=== PATIENT | male | born 1945 | race Caucasian/White ===

== ENCOUNTER 2016-11-08 10:53 | Inpatient (IN) | payer MEDICARE, MEDICAID, OTHER ==
[~2016-11-08] VITALS: Ht 182.9 cm; Wt 106.9 kg
--- NOTE | ~2016-11-08 | OR ---
PATIENT'S NAME: LORAINE ERVIN [facility] AGE: 71 Y [address] ROOM: [address] [address] LOCATION: GICU ADMIT DATE: 11/08/2016 OR/Procedure Report DISCHARGE DATE: FAMILY PHYSICIAN: Boo Taylor MD ATTENDING PHYSICIAN: Branden Sexton SURGEON: Branden Sexton MD PLANT ELECTRICAL ENGINEER: DATE OF PROCEDURE: 11/08/2016 PREOPERATIVE DIAGNOSES: Left frontal intracerebral hemorrhage. POSTOPERATIVE DIAGNOSIS: Left frontal intracerebral hemorrhage. OPERATION PROPOSED AND PERFORMED: Right frontal craniotomy and evacuation of intracerebral hematoma. DESCRIPTION OF PROCEDURE: Under general anesthesia, the patient was positioned supine. The right frontal region was shaved, prepped, and draped in the usual fashion. The patient was placed in a Ramirez head clamp. The right frontal region was then prepped and draped in the usual manner. An almost semilunar incision was carried out extending from the anterior portion of the frontal bone to the posterior portion of the frontal bone curving inferiorly and anteriorly over the right earlobe. The temporalis muscle and fascia were then incised using the Bovie as well as the pericranium. The pericranium as well as the temporalis muscle and fascia were reflected as a unit with the scalp. Bur holes were carried out in the frontal region and a free frontal bone flap was fashioned out. We used the ultrasound to give us an idea of where the hematoma was closest to the surface and carried out a cerebrotomy and we got most promptly into the intracerebral hematoma. After we got in, we then went ahead and using the suction evacuated the hematoma. There were some abnormal vessels on the surface and there was an area where there was probably recent blood clot with destruction of the brain at this site. However, we were able to go around that and take that out and send it to the pathologist to make sure that there is not any arteriovenous malformation at this site that could explain the hemorrhage that he had. Having completely evacuated the hematoma grossly, the wound was then thoroughly irrigated with bacitracin irrigation continuously during the procedure and pieces of Surgicel were then used to line the cavity left behind after evacuating the hematoma. Hemostasis was achieved during the procedure with bipolar cautery. Next, the dura was closed in the usual manner. The PATIENT'S NAME: LORAINE ERVIN [facility] AGE: 71 Y [address] ROOM: [place] [address] LOCATION: [facility] ADMIT DATE: 11/08/2016 OR/Procedure Report DISCHARGE DATE: FAMILY PHYSICIAN: Boo Taylor MD ATTENDING PHYSICIAN: Branden Sexton temporalis muscle and fascia were sutured together and the scalp was then closed in the usual two layer fashion. After that, at the time we opened the dura, the brain was quite tight; however, after evacuating the hematoma, the brain was very well decompressed. The patient did tolerate the procedure well and was taken to the intensive care unit. MD HAYES FLORES/jeanie /[id number] d: 11/09/16 0133 t: 12/07/16 1228, OPERATIVE SUMMARY
--- NOTE | ~2016-11-08 | ENPV ---
Vascular Lower Extremities DVT Study Procedure Demographics Patient Name LORAINE ERVIN Date of Study 11/12/2016 Patient Number [id number] Gender Male Date of 1945 Age 71 Visit Number [id number] Height Accession Number [id number] Weight Room Number G6215 BSA BMI Referring Carlie Garcia MD Physician Conrad Flowers Physician Fatimah Silva MD Physician Ordering Physician Conrad Flowers Marketing Outreach Coordinator Linux Administrator Blas Patel [facility] Conclusions Summary No evidence of deep vein thrombosis or superficial thrombophlebitis in the lower extremities bilaterally . Procedure Type of Study: Veins:Lower Extremities DVT Study, Venous Duplex Lower Extremity Bilateral. Additional Indications:extended bedrest intracranial bleed Appropriate Use Criteria:9 Patient Status:Routine. Study Location:Inpatient Portable. Technical Quality:Adequate visualization. Velocities are measured in cm/s ; Diameters are measured in cm Right Lower Extremities DVT Study Measurements Right 2D and Doppler Measurements + + + + +------+------+ + !Location !Visualized!Compressibility!Thrombosis!Signal!Reflux!Reflux ! ! ! ! ! ! ! !(sec) ! + + + + +------+------+ + !GSV Thigh !Yes !Yes !None !Phasic!No ! ! + + + + +------+------+ + !Common !Yes !Yes !None !Phasic!No ! ! !Femoral ! ! ! ! ! ! ! + + + + +------+------+ + !Prox !Yes !Yes !None !Phasic!No ! ! !Femoral ! ! ! ! ! ! ! + + + + +------+------+ + !Mid Femoral!Yes !Yes !None !Phasic!No ! ! + + + + +------+------+ + !Dist !Yes !Yes !None !Phasic!No ! ! !Femoral ! ! ! ! ! ! ! + + + + +------+------+ + !Popliteal !Yes !Yes !None !Phasic!No ! ! + + + + +------+------+ + !Gastroc !Yes !Yes !None !Phasic!No ! ! + + + + +------+------+ + !PTV !Yes !Yes !None !Phasic!No ! ! + + + + +------+------+ + !Peroneal !Yes !Yes !None !Phasic!No ! ! + + + + +------+------+ + Left Lower Extremities DVT Study Measurements Left 2D and Doppler Measurements + + + + +------+------+ + !Location !Visualized!Compressibility!Thrombosis!Signal!Reflux!Reflux ! ! ! ! ! ! ! !(sec) ! + + + + +------+------+ + !GSV Thigh !Yes !Yes !None !Phasic!No ! ! + + + + +------+------+ + !Common !Yes !Yes !None !Phasic!No ! ! !Femoral ! ! ! ! ! ! ! + + + + +------+------+ + !Prox !Yes !Yes !None !Phasic!No ! ! !Femoral ! ! ! ! ! ! ! + + + + +------+------+ + !Mid Femoral!Yes !Yes !None !Phasic!No ! ! + + + + +------+------+ + !Dist !Yes !Yes !None !Phasic!No ! ! !Femoral ! ! ! ! ! ! ! + + + + +------+------+ + !Popliteal !Yes !Yes !None !Phasic!No ! ! + + + + +------+------+ + !Gastroc !Yes !Yes !None !Phasic!No ! ! + + + + +------+------+ + !PTV !Yes !Yes !None !Phasic!No ! ! + + + + +------+------+ + !Peroneal !Yes !Yes !None !Phasic!No ! ! + + + + +------+------+ + Signature dtt: JANIE JUAREZ dtd: 11/12/16 0750 Physician Lokesh Cardoza
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
--- NOTE | ~2016-11-08 | ER ---
PATIENT'S NAME: ARCADIOLORAINE [facility] AGE: 71 Y [address] ROOM: [place] [address] LOCATION: [facility] ADMIT DATE: 11/08/2016 ER/Outpatient Report DISCHARGE DATE: FAMILY PHYSICIAN: Boo Taylor MD ATTENDING PHYSICIAN: Branden Sexton TIME OF ARRIVAL: 1053 hours. TIME OF EVALUATION: 1053 hours. CHIEF COMPLAINT: Head bleed. HISTORY OF PRESENT ILLNESS: The patient is a 71-year-old male who presents to the emergency department today with a chief complaint of head bleed. The patient was transferred from [place]. Apparently, the patient is a alf patient. He has been combative, ended up getting some Haldol when he was checked on, noted to be nonverbal with right-sided facial droop and unable to move his right arm and leg. He was sent to [facility], found to have an intracranial hemorrhage, and transferred here for higher level of care. The patient was seen in the emergency department here as there was a concern that the patient was having respiratory distress and worsening mental status that would require intubation. PAST MEDICAL HISTORY: Coronary artery disease, dementia, dyslipidemia, macular degeneration, depression, and anxiety. PAST SURGICAL HISTORY: None reported. SOCIAL HISTORY: The patient denies any tobacco, alcohol, or illicit drug use. ALLERGIES: NO KNOWN DRUG ALLERGIES. MEDICATIONS: Please see list. REVIEW OF SYSTEMS: Unable to be obtained secondary to the patient's critical condition. PATIENT'S NAME: [facility] AGE: 71 Y [address] ROOM: [place] [address] LOCATION: [facility] ADMIT DATE: 11/08/2016 ER/Outpatient Report DISCHARGE DATE: FAMILY PHYSICIAN: Boo Taylor MD ATTENDING PHYSICIAN: Branden Sexton PHYSICAL EXAMINATION: VITAL SIGNS: Weight 108.9 kg. Blood pressure 177/79, pulse 95, respiratory rate 16, temperature 99.4, and oxygen saturation 97% on 4 L nasal cannula. GENERAL: The patient is a 71-year-old male who appears stated age. HEENT: Normocephalic, atraumatic. Pupils are 3 mm and reactive with left lateral deviation. Does have left tongue deviation. The patient's oropharynx is rather clear. NECK: Supple. No step-offs or deformities. CARDIOVASCULAR: Regular rate and rhythm. No murmurs, rubs, or gallops. LUNGS: Clear to auscultation bilaterally. No wheezes, rales, or rhonchi. ABDOMEN: Soft, nontender, and nondistended. No rebound, rigidity, or guarding. Positive bowel sounds. MUSCULOSKELETAL: The patient is flaccid in his right upper extremity. He does have some slight movement in his right foot. He is able to lift his left leg. 3/5 muscle strength on command. He does follow command and is able to squeeze fingers on the left. He does attempt to look and follow light. NEUROLOGICAL: GCS E4, V2, M6. He does have upward going toes on the right. No clonus. 2/4 reflexes. SKIN: Warm and dry. LABORATORY AND X-RAY DATA: CT scan of the brain is obtained. It does reveal a large intracerebral hemorrhage. CMP: Sodium 127, chloride 92, and glucose 215. LFTs are normal. CBC unremarkable except for white blood cell count 16.2. Coags are normal. IMPRESSION: 1. Intracerebral hemorrhage. 2. Initial visit. EMERGENCY DEPARTMENT COURSE: The patient was brought back to the examination room. Seen and evaluated immediately upon arrival by myself. I have discussed the case with Dr. Sexton with Neurosurgery. He has seen and evaluated the patient down here in the emergency department. The patient will proceed directly to the operating room. DISPOSITION: The patient is transferred to the operating room under the care of Dr. Sexton in critical condition. CARLOTA JIMENES DO PATIENT'S NAME: LORAINE ERVIN [facility] AGE: 71 Y [address] ROOM: [address] [address] LOCATION: [facility] ADMIT DATE: 11/08/2016 ER/Outpatient Report DISCHARGE DATE: FAMILY PHYSICIAN: Boo Taylor MD ATTENDING PHYSICIAN: Branden Sexton/jeanie /[id number] d: 11/08/16 1437 t: 11/12/16 2103, OUTPATIENT REPORT
[2016-11-08 11:15] LABS: BASOPHIL # 0.1 K/uL (0.0-0.2); BASOPHIL % 0.4 %; EOSINOPHIL % 0.1 %; HEMATOCRIT 38.8 % (37.0-53.0); HEMOGLOBIN 14.2 g/dL (11.0-16.0); IMMATURE GRANULOCYTE # 0.1 K/uL (0.0-0.3); IMMATURE GRANULOCYTE % 0.6 %; LYMPHOCYTE % 5.9 %; MCH 29.5 pg (27.0-34.0); MCHC 36.6 gm/dL (32.0-36.5); MCV 80.5 fl (83.0-98.0); MONOCYTE # 0.9 K/uL (0.0-1.0); MONOCYTE % 5.6 %; NEUTROPHIL # (ANC) 14.1 K/uL (1.4-9.0); NEUTROPHIL % 87.4 %; NRBC % 0 /100WBC (0-0.00); PLATELET COUNT 172 K/uL (150-450); RBC 4.82 M/uL (3.50-5.50); RDW-CV 12.2 % (11.9-14.6)
[2016-11-08 11:17] LABS: WBC 16.2 K/uL (4.0-11.0)
[2016-11-08 11:25] LABS: INR - (THERAPEUTIC) 1.02 (0.92-1.07); PROTIME 10.7 SECONDS (9.8-11.4); PTT 29 SECONDS (25-32)
[2016-11-08 11:32] LABS: ALBUMIN 3.7 gm/dL (3.5-5.0); ANION GAP 14.4 (10.0-19.0); CALCIUM 8.2 mg/dL (8.5-10.5); POTASSIUM 4.4 mMol/L (3.7-5.1); TOTAL BILIRUBIN 0.8 mg/dL (0.0-1.5); TOTAL PROTEIN 7.2 g/dL (6.0-8.4)
[2016-11-08] MEDS ORDERED: ASPIRIN LO-DOSE81 MG PO (18:01)
[2016-11-08] MEDS ORDERED: ZESTRIL40 MG PO (18:02)
[2016-11-08] MEDS ORDERED: THERAGRAN-M1 TAB PO (18:14)
[2016-11-08] MEDS ORDERED: ZOLOFT100 MG PO (18:15)
[2016-11-08] MEDS ORDERED: MAG-OX-400(241400 MG PO (18:17)
[2016-11-08] MEDS ORDERED: ZYPREXA2.5 MG PO ×2 (18:17→18:25)
[2016-11-08] MEDS ORDERED: PEPCID20 MG PO (18:18)
[2016-11-08] MEDS ORDERED: HALDOL1 MG PO (18:19)
[2016-11-08] MEDS ORDERED: TYLENOL WITH C1 EACH PO (18:19)
[2016-11-08] MEDS ORDERED: NATURAL BALANCE15 ML OPHTH (18:21)
[2016-11-08] MEDS ORDERED: MAG-AL PLUS XS30 ML PO (18:23)
[2016-11-08] MEDS ORDERED: ROBITUSSIN DM120 ML PO (18:24)
[2016-11-08] MEDS ORDERED: SURFAK240 MG PO (18:26)
[2016-11-08] MEDS ORDERED: TYLENOL325 MG PO (18:26)
[2016-11-08] MEDS ORDERED: COREG12.5 MG PO (18:27)
[2016-11-08] MEDS ORDERED: GLUCOPHAGE1000 MG PO (18:27)
[2016-11-08] MEDS ORDERED: PRILOSEC20 MG PO (18:28)
[2016-11-08] MEDS ORDERED: THIAMINE HCL100 MG PO (18:37)
[2016-11-08] MEDS ORDERED: ZOCOR20 MG PO (18:38)
[2016-11-08] MEDS ORDERED: PROSCAR5 MG PO (18:39)
[2016-11-08] MEDS ORDERED: FOLIC ACID1 MG PO (18:39)
[2016-11-08] MEDS ORDERED: HALDOL5 MG/ML IM (18:47)
[2016-11-08 20:56] LABS: ALBUMIN 3.4 gm/dL (3.5-5.0); ANION GAP 15.8 (10.0-19.0); CALCIUM 7.5 mg/dL (8.5-10.5); CREATININE 1.1 mg/dL (0.6-1.3); PHOSPHORUS 2.2 mg/dL (2.5-4.9); POTASSIUM 3.8 mMol/L (3.7-5.1)
[2016-11-09 04:57] LABS: BICARBONATE 21.5 mmol/L (18.0-23.0); PCO2 38 mmHg (35-45); PO2 100 mmHg (80-90)
[2016-11-09 05:10] LABS: INR - (THERAPEUTIC) 1.03 (0.92-1.07); PROTIME 10.8 SECONDS (9.8-11.4); PTT 29 SECONDS (25-32)
[2016-11-09 05:20] LABS: ALBUMIN 3.5 gm/dL (3.5-5.0); ANION GAP 13.8 (10.0-19.0); CALCIUM 7.6 mg/dL (8.5-10.5); CREATININE 0.9 mg/dL (0.6-1.3); POTASSIUM 4.8 mMol/L (3.7-5.1); TOTAL BILIRUBIN 0.7 mg/dL (0.0-1.5); TOTAL PROTEIN 6.9 g/dL (6.0-8.4)
[2016-11-09 05:23] LABS: BASOPHIL # 0.1 K/uL (0.0-0.2); BASOPHIL % 0.4 %; HEMATOCRIT 39.5 % (37.0-53.0); IMMATURE GRANULOCYTE # 0.2 K/uL (0.0-0.3); IMMATURE GRANULOCYTE % 0.8 %; LYMPHOCYTE # 1.5 K/uL (0.8-4.0); LYMPHOCYTE % 6.4 %; MCH 29.4 pg (27.0-34.0); MCHC 35.4 gm/dL (32.0-36.5); MCV 82.8 fl (83.0-98.0); MONOCYTE # 3.3 K/uL (0.0-1.0); MONOCYTE % 13.9 %; NEUTROPHIL # (ANC) 18.5 K/uL (1.4-9.0); NEUTROPHIL % 78.5 %; NRBC % 0 /100WBC (0-0.00); PLATELET COUNT 192 K/uL (150-450); RBC 4.77 M/uL (3.50-5.50); RDW-CV 12.9 % (11.9-14.6)
[2016-11-09 05:29] LABS: WBC 23.6 K/uL (4.0-11.0)
[2016-11-09 20:14] LABS: ALBUMIN 2.9 gm/dL (3.5-5.0)
[2016-11-09 20:15] LABS: ANION GAP 11.8 (10.0-19.0); CALCIUM 7.4 mg/dL (8.5-10.5); PHOSPHORUS 1.7 mg/dL (2.5-4.9); POTASSIUM 3.8 mMol/L (3.7-5.1)
[2016-11-10 05:17] LABS: BICARBONATE 24.2 mmol/L (18.0-23.0); PCO2 34 mmHg (35-45); PO2 90 mmHg (80-90)
[2016-11-10 05:37] LABS: ALBUMIN 2.7 gm/dL (3.5-5.0); ANION GAP 10.9 (10.0-19.0); CALCIUM 7.5 mg/dL (8.5-10.5); CREATININE 0.9 mg/dL (0.6-1.3); POTASSIUM 3.9 mMol/L (3.7-5.1); TOTAL PROTEIN 5.9 g/dL (6.0-8.4)
[2016-11-10 05:44] LABS: BASOPHIL # 0.1 K/uL (0.0-0.2); BASOPHIL % 0.3 %; EOSINOPHIL % 0.2 %; HEMATOCRIT 31.9 % (37.0-53.0); HEMOGLOBIN 11.6 g/dL (11.0-16.0); IMMATURE GRANULOCYTE # 0.2 K/uL (0.0-0.3); IMMATURE GRANULOCYTE % 0.9 %; LYMPHOCYTE # 1.2 K/uL (0.8-4.0); LYMPHOCYTE % 5.8 %; MCH 30.4 pg (27.0-34.0); MCHC 36.4 gm/dL (32.0-36.5); MCV 83.5 fl (83.0-98.0); MONOCYTE # 2.4 K/uL (0.0-1.0); MONOCYTE % 11.8 %; MPV 10.5 fl (9.4-12.4); NEUTROPHIL # (ANC) 16.5 K/uL (1.4-9.0); NRBC % 0 /100WBC (0-0.00); RBC 3.82 M/uL (3.50-5.50); RDW-CV 12.9 % (11.9-14.6); TOTAL BILIRUBIN 0.9 mg/dL (0.0-1.5)
[2016-11-10 05:47] LABS: PLATELET COUNT 138 K/uL (150-450); WBC 20.4 K/uL (4.0-11.0)
[2016-11-10 05:50] LABS: INR - (THERAPEUTIC) 1.13 (0.92-1.07); PROTIME 11.9 SECONDS (9.8-11.4)
[2016-11-10 17:08] LABS: ALBUMIN 2.8 gm/dL (3.5-5.0); ANION GAP 10.9 (10.0-19.0); BLOOD UREA NITROGEN 7 mg/dL (6-24); CALCIUM 7.9 mg/dL (8.5-10.5); CHLORIDE 101 mMol/L (96-110); CO2 26 mMol/L (22-32); CREATININE 0.7 mg/dL (0.6-1.3); POTASSIUM 3.9 mMol/L (3.7-5.1); SODIUM 134 mMol/L (135-145)
[2016-11-10 17:09] LABS: PHOSPHORUS 1.5 mg/dL (2.5-4.9)
[2016-11-11 04:12] LABS: BICARBONATE 26.9 mmol/L (18.0-23.0); PCO2 37 mmHg (35-45); PO2 75 mmHg (80-90)
[2016-11-11 04:30] LABS: ALBUMIN 2.4 gm/dL (3.5-5.0); ALK PHOS 81 IU/L (33-138); ALT 26 IU/L (12-78); ANION GAP 10.6 (10.0-19.0); AST 33 IU/L (10-40); BLOOD UREA NITROGEN 8 mg/dL (6-24); CALCIUM 7.6 mg/dL (8.5-10.5); CHLORIDE 104 mMol/L (96-110); CO2 25 mMol/L (22-32); CREATININE 0.7 mg/dL (0.6-1.3); POTASSIUM 3.6 mMol/L (3.7-5.1); SODIUM 136 mMol/L (135-145); TOTAL PROTEIN 5.6 g/dL (6.0-8.4)
[2016-11-11 04:32] LABS: TOTAL BILIRUBIN 0.7 mg/dL (0.0-1.5)
[2016-11-11 04:34] LABS: BASOPHIL # 0.1 K/uL (0.0-0.2); BASOPHIL % 0.3 %; EOSINOPHIL # 0.1 K/uL (0.0-0.5); EOSINOPHIL % 0.6 %; HEMATOCRIT 29.8 % (37.0-53.0); HEMOGLOBIN 10.7 g/dL (11.0-16.0); IMMATURE GRANULOCYTE # 0.2 K/uL (0.0-0.3); IMMATURE GRANULOCYTE % 1.3 %; LYMPHOCYTE % 5.8 %; MCH 30.2 pg (27.0-34.0); MCHC 35.9 gm/dL (32.0-36.5); MCV 84.2 fl (83.0-98.0); MONOCYTE # 1.5 K/uL (0.0-1.0); MONOCYTE % 8.6 %; MPV 10.4 fl (9.4-12.4); NEUTROPHIL # (ANC) 14.5 K/uL (1.4-9.0); NEUTROPHIL % 83.4 %; NRBC % 0 /100WBC (0-0.00); PLATELET COUNT 140 K/uL (150-450); RBC 3.54 M/uL (3.50-5.50); RDW-CV 12.9 % (11.9-14.6)
[2016-11-11 04:36] LABS: WBC 17.4 K/uL (4.0-11.0)
[2016-11-11 17:28] LABS: HEMATOCRIT 30.8 % (37.0-53.0)
[2016-11-11 17:43] LABS: ALBUMIN 2.6 gm/dL (3.5-5.0); ANION GAP 13.4 (10.0-19.0); BLOOD UREA NITROGEN 9 mg/dL (6-24); CALCIUM 7.7 mg/dL (8.5-10.5); CHLORIDE 100 mMol/L (96-110); CO2 26 mMol/L (22-32); CREATININE 0.7 mg/dL (0.6-1.3); POTASSIUM 3.4 mMol/L (3.7-5.1); SODIUM 136 mMol/L (135-145)
[2016-11-11 17:44] LABS: PHOSPHORUS 1.7 mg/dL (2.5-4.9)
[2016-11-12 04:14] LABS: BICARBONATE 28.9 mmol/L (18.0-23.0); PCO2 37 mmHg (35-45); PO2 76 mmHg (80-90)
[2016-11-12 04:17] LABS: ALBUMIN 2.4 gm/dL (3.5-5.0); ALK PHOS 111 IU/L (33-138); ALT 50 IU/L (12-78); ANION GAP 9.6 (10.0-19.0); AST 50 IU/L (10-40); BLOOD UREA NITROGEN 9 mg/dL (6-24); CALCIUM 8.1 mg/dL (8.5-10.5); CHLORIDE 103 mMol/L (96-110); CO2 28 mMol/L (22-32); CREATININE 0.7 mg/dL (0.6-1.3); POTASSIUM 3.6 mMol/L (3.7-5.1); SODIUM 137 mMol/L (135-145); TOTAL BILIRUBIN 0.6 mg/dL (0.0-1.5); TOTAL PROTEIN 6.1 g/dL (6.0-8.4)
[2016-11-12 04:20] LABS: BASOPHIL # 0.1 K/uL (0.0-0.2); BASOPHIL % 0.5 %; EOSINOPHIL # 0.4 K/uL (0.0-0.5); HEMATOCRIT 30.2 % (37.0-53.0); HEMOGLOBIN 10.6 g/dL (11.0-16.0); IMMATURE GRANULOCYTE # 0.2 K/uL (0.0-0.3); IMMATURE GRANULOCYTE % 1.2 %; LYMPHOCYTE # 1.4 K/uL (0.8-4.0); LYMPHOCYTE % 11.4 %; MCH 29.9 pg (27.0-34.0); MCHC 35.1 gm/dL (32.0-36.5); MCV 85.3 fl (83.0-98.0); MONOCYTE # 1.3 K/uL (0.0-1.0); NEUTROPHIL # (ANC) 9.3 K/uL (1.4-9.0); NEUTROPHIL % 73.9 %; NRBC % 0 /100WBC (0-0.00); PLATELET COUNT 187 K/uL (150-450); RBC 3.54 M/uL (3.50-5.50); RDW-CV 13.1 % (11.9-14.6); WBC 12.6 K/uL (4.0-11.0)
[2016-11-13 08:03] LABS: BASOPHIL # 0.1 K/uL (0.0-0.2); BASOPHIL % 1.1 %; EOSINOPHIL # 0.4 K/uL (0.0-0.5); EOSINOPHIL % 3.5 %; HEMATOCRIT 31.6 % (37.0-53.0); HEMOGLOBIN 11.1 g/dL (11.0-16.0); IMMATURE GRANULOCYTE # 0.2 K/uL (0.0-0.3); IMMATURE GRANULOCYTE % 1.4 %; LYMPHOCYTE # 1.1 K/uL (0.8-4.0); LYMPHOCYTE % 10.5 %; MCH 30.2 pg (27.0-34.0); MCHC 35.1 gm/dL (32.0-36.5); MCV 85.9 fl (83.0-98.0); MONOCYTE # 1.3 K/uL (0.0-1.0); MONOCYTE % 12.6 %; MPV 9.4 fl (9.4-12.4); NEUTROPHIL # (ANC) 7.4 K/uL (1.4-9.0); NEUTROPHIL % 70.9 %; NRBC % 0 /100WBC (0-0.00); PLATELET COUNT 224 K/uL (150-450); RBC 3.68 M/uL (3.50-5.50); WBC 10.5 K/uL (4.0-11.0)
[2016-11-13 08:18] LABS: ANION GAP 11.6 (10.0-19.0); CALCIUM 8.4 mg/dL (8.5-10.5); CREATININE 0.8 mg/dL (0.6-1.3); POTASSIUM 3.6 mMol/L (3.7-5.1)
[2016-11-14 05:42] LABS: CALCIUM 8.7 mg/dL (8.5-10.5); CREATININE 0.8 mg/dL (0.6-1.3)
== END 2016-11-16 20:20 | disposition expired | DRG 23 ==
LOC: GMED 10:53 → GICU 11:25 → GPCU 11:25 → GICU 11:44
PROVIDERS: Anesthesiology; Emergency Medicine; Physical Medicine & Rehabilitation; ADMIT Neurological Surgery
PROC: 00C60ZZ Extirpation of Matter from Cerebral Ventricle, Open Approach (ICD-10-PCS; principal; 2016-11-08)
PROC: 02HV33Z Insertion of Infusion Device into Superior Vena Cava, Percutaneous Approach (ICD-10-PCS; principal; 2016-11-08)
PROC: 0BH17EZ Insertion of Endotracheal Airway into Trachea, Via Natural or Artificial Opening (ICD-10-PCS; 2016-11-08)
PROC: 5A1955Z Respiratory Ventilation, Greater than 96 Consecutive Hours (ICD-10-PCS; 2016-11-08)
PROC: 0DH67UZ Insertion of Feeding Device into Stomach, Via Natural or Artificial Opening (ICD-10-PCS; 2016-11-13)
DX: I61.9 Nontraumatic intracerebral hemorrhage, unspecified (principal); I50.23 Acute on chronic systolic (congestive) heart failure; J96.00 Acute respiratory failure, unspecified whether with hypoxia or hypercapnia; J69.0 Pneumonitis due to inhalation of food and vomit; F02.81 Dementia in other diseases classified elsewhere, unspecified severity, with behavioral disturbance; G30.9 Alzheimer's disease, unspecified; E87.1 Hypo-osmolality and hyponatremia; Z51.5 Encounter for palliative care; Z66 Do not resuscitate; D62 Acute posthemorrhagic anemia; G81.91 Hemiplegia, unspecified affecting right dominant side; R47.01 Aphasia; I11.0 Hypertensive heart disease with heart failure; F91.9 Conduct disorder, unspecified; B95.62 Methicillin resistant Staphylococcus aureus infection as the cause of diseases classified elsewhere; E78.5 Hyperlipidemia, unspecified; I25.10 Atherosclerotic heart disease of native coronary artery without angina pectoris; F32.9 Major depressive disorder, single episode, unspecified; F28 Other psychotic disorder not due to a substance or known physiological condition; F10.21 Alcohol dependence, in remission; Z95.5 Presence of coronary angioplasty implant and graft; N40.0 Benign prostatic hyperplasia without lower urinary tract symptoms; E11.9 Type 2 diabetes mellitus without complications; R29.810 Facial weakness; H35.30 Unspecified macular degeneration; Z78.1 Physical restraint status; R31.9 Hematuria, unspecified; D72.829 Elevated white blood cell count, unspecified
CPT/HCPCS: C1713; J0690; J1165; J2060; J2250; J2270; J2543; J2704; J3010; J3370; J3480; J7030; J7040; J7050

== ENCOUNTER → 2016-11-08 | Outpatient (CLI) | payer MEDICARE, MEDICAID ==
[~2016-11-08] MED LIST: ASPIRIN LO-DOSE81 MG PO; COREG12.5 MG PO; FOLIC ACID1 MG PO; GLUCOPHAGE1000 MG PO; HALDOL1 MG PO; HALDOL5 MG/ML IM; MAG-AL PLUS XS30 ML PO; MAG-OX-400(241400 MG PO; NATURAL BALANCE15 ML OPHTH; PEPCID20 MG PO; PRILOSEC20 MG PO; PROSCAR5 MG PO; ROBITUSSIN DM120 ML PO; SURFAK240 MG PO; THERAGRAN-M1 TAB PO; THIAMINE HCL100 MG PO; TYLENOL WITH C1 EACH PO; TYLENOL325 MG PO; ZESTRIL40 MG PO; ZOCOR20 MG PO; ZOLOFT100 MG PO; ZYPREXA2.5 MG PO
== END | disposition disaster alternative care site (69) ==
LOC: GAIR 10:08
DX: I63.9 Cerebral infarction, unspecified (principal); F03.90 Unspecified dementia, unspecified severity, without behavioral disturbance, psychotic disturbance, mood disturbance, and anxiety; E11.9 Type 2 diabetes mellitus without complications; E78.5 Hyperlipidemia, unspecified; I62.9 Nontraumatic intracranial hemorrhage, unspecified; I10 Essential (primary) hypertension; I25.10 Atherosclerotic heart disease of native coronary artery without angina pectoris; R41.82 Altered mental status, unspecified; R29.810 Facial weakness; R47.01 Aphasia; Z79.84 Long term (current) use of oral hypoglycemic drugs; Z79.82 Long term (current) use of aspirin; Z79.891 Long term (current) use of opiate analgesic; Z79.899 Other long term (current) drug therapy
CPT/HCPCS: A0422; A0431; A0436